=== PATIENT | male | born 1995 | race Caucasian/White ===

== ENCOUNTER → 2018-10-10 | Outpatient (REF) | payer OTHER | LOC: M LAB REF 11:29 | PROVIDERS: ATTEND Internal Medicine Gastroenterology | DX: R19.7 Diarrhea, unspecified (principal) ==

== ENCOUNTER 2018-10-13 11:14 | Day surgery (SDC) | payer OTHER ==
[~2018-10-13] VITALS: Ht 177.8 cm; Wt 74.6 kg
[2018-10-13] MEDS ORDERED: NS 1,000 ML IV ONE (12:15)
[2018-10-13] MEDS ORDERED: LIDOCAINE 2% INJ 100 MG/5 ML SDV (FOR ANES.) As Ordered ONE (13:06)
[2018-10-13] MEDS ORDERED: PROPOFOL 200 MG/20 ML VIAL As Ordered ONE ×2 (13:06→13:12)
--- NOTE | 2018-10-13 13:26 | ROOR ---
Patient Name: Zaid Velazquez Procedure Date: 10/13/2018 12:55 PM Date of : 1995 Age: 23 Room: [facility] Gender: Male Note Status: Finalized Procedure: Total Colonoscopy to Cecum + Cold Snare Polypectomy + Hemoclips + ileoscopy Indications: Clinically significant diarrhea of unexplained origin, Rectal bleeding Providers: Naveen Beaver MD Referring MD: MAGGY HAYS MD Requesting Provider: Medicines: Monitored Anesthesia Care Complications: No immediate complications. Procedure: Pre-Anesthesia Assessment: - The heart rate, respiratory rate, oxygen saturations, blood pressure, adequacy of pulmonary ventilation, and response to care were monitored throughout the procedure. The Colonoscope was introduced through the anus and advanced to the cecum, identified by appendiceal orifice and ileocecal valve. The colonoscopy was performed without difficulty. The patient tolerated the procedure well. The quality of the bowel preparation was excellent. Findings: The perianal and digital rectal examinations were normal. Non-bleeding internal hemorrhoids were found during retroflexion. The hemorrhoids were small and Grade I (internal hemorrhoids that do not prolapse). A medium polyp was found at 50 cm proximal to the anus. The polyp was sessile. The polyp was removed with a cold snare. Resection and retrieval were complete. To prevent bleeding after the polypectomy, one hemostatic clip was successfully placed (MR conditional). There was no bleeding at the end of the procedure. Biopsies for histology were taken with a cold forceps from the cecum, ascending colon and descending colon for evaluation of microscopic colitis. Multiple sessile polyps were found in the cecum. The polyps were diminutive in size. These polyps were removed with a cold biopsy forceps. Resection and retrieval were complete. The terminal ileum appeared normal. The exam was otherwise without abnormality on direct and retroflexion views. Impression: - Non-bleeding internal hemorrhoids. - One medium polyp at 50 cm proximal to the anus, removed with a cold snare. Resected and retrieved. Clip (MR conditional) was placed. Biopsied. - Multiple diminutive polyps in the cecum, removed with a cold biopsy forceps. Resected and retrieved. - The examined portion of the ileum was normal. - The examination was otherwise normal on direct and retroflexion views. - The exam was otherwise normal to the cecum. Recommendation: - Patient has a contact number available for emergencies. The signs and symptoms of potential delayed complications were discussed with the patient. Return to normal activities tomorrow. Written discharge instructions were provided to the patient. - High fiber diet. - Discharge patient to home. - Continue present medications. - Await pathology results. - Telephone GI clinic for pathology results in 1 week. - Repeat colonoscopy at age 48 for screening purposes. - Return to referring physician. - The findings and recommendations were discussed with the patient's family. Naveen Beaver MD Naveen Beaver MD 10/13/2018 1:25:53 PM Electronically signed by Naveen Beaver MD Number of Addenda: 0 Note Initiated On: 10/13/2018 12:55 PM Estimated Blood Loss: Estimated blood loss: none.
[2018-10-13 14:01] VITALS: BP 132/85
== END 2018-10-13 14:04 | disposition home or self-care (01) ==
LOC: M OPP 11:14
PROVIDERS: ATTEND Internal Medicine Gastroenterology
DX: R19.7 Diarrhea, unspecified (principal); K62.5 Hemorrhage of anus and rectum; K64.0 First degree hemorrhoids; D12.5 Benign neoplasm of sigmoid colon; D12.0 Benign neoplasm of cecum; Z80.42 Family history of malignant neoplasm of prostate; Z80.0 Family history of malignant neoplasm of digestive organs

== ENCOUNTER → 2018-11-04 | Outpatient (REF) | payer OTHER ==
[2018-11-04 12:09] LABS: SEMEN APPEARANCE OPAQUE (OPAQUE); SEMEN VISCOSITY LIQUID (LIQUID); SEMEN VOLUME 2.5 ml (2.0-5.0); SEMEN pH 8.5 (7.0-8.0)
[2018-11-04 12:10] LABS: WBC CONCENTRATION >1 M/ml (<=1 M/ml)
== END ==
LOC: M LAB REF 11:49
PROVIDERS: ATTEND Physician Assistant
DX: N46.9 Male infertility, unspecified (principal)

== ENCOUNTER 2019-03-26 15:55 | Emergency (ER) | payer OTHER ==
[~2019-03-26] VITALS: Ht 177.8 cm; Wt 80.6 kg
[2019-03-26] MEDS ORDERED: CYCL10TA (16:00)
[2019-03-26] MEDS ORDERED: PRED50TA (16:00)
[2019-03-26] MEDS ORDERED: ACETAMINOPHEN 325 MG TAB PO ONE (17:15)
[2019-03-26] MEDS ORDERED: KETOROLAC 60 MG/2 ML VIAL (J1885) IM ONE (17:15)
[2019-03-26] MEDS ORDERED: LIDOCAINE 5% (LIDODERM) PATCH TD ONE (17:15)
--- NOTE | 2019-03-26 19:21 | REPVR ---
PROCEDURE INFORMATION: Exam: CT Lumbar Spine Without Contrast Exam date and time: 03/26/2019 6:17 PM Age: 23 years old Clinical indication: Low back pain; Additional info: Chronic lumbar back pain x years TECHNIQUE: Imaging protocol: Computed tomography images of the lumbar spine without contrast. Radiation optimization: All CT scans at this facility use at least one of these dose optimization techniques: automated exposure control; mA and/or kV adjustment per patient size (includes targeted exams where dose is matched to clinical indication); or iterative reconstruction. COMPARISON: No relevant prior studies available. FINDINGS: Vertebrae: Non-specific straightening of the lumbar lordosis. Vertebral body height and AP alignment is preserved. No acute lumbar spine fracture. Discs/Spinal canal/Neural foramina: Suspect at least mild central canal stenosis at L3-L4 and L4-L5. Soft tissues: Unremarkable. IMPRESSION: 1. No acute osseous abnormality. 2. Suspect at least mild central canal stenosis at L3-L4 and L4-L5. MRI may be considered. Electronically signed by: Edin Childers On 03/26/2019 19:21:12 PM
[2019-03-26] MEDS ORDERED: LIDO5DIS41 TD (20:04)
[2019-03-26] MEDS ORDERED: KETO10TAB PO (20:04)
[2019-03-26 20:12] VITALS: BP 146/81
[2019-03-26] MEDS ORDERED: **NOTE PATIENT COMMENT** MISC XX SCH (21:00)
--- NOTE | 2019-03-27 07:44 | ED PDOC ---
Post-Departure Follow-Up [facility] faxed formal reprot of ct ls spine for fu Tyree Franz MD Mar 27, 2019 07:44
== END 2019-03-26 20:24 | disposition home or self-care (01) ==
LOC: M ED 15:55
DX: M48.061 Spinal stenosis, lumbar region without neurogenic claudication (principal)
CPT/HCPCS: 72131; 96372; 99283; J1885